=== PATIENT | male | born 1980 | race Caucasian/White ===

== ENCOUNTER 2016-05-09 10:46 | Emergency (ER) | payer OTHER, SELFPAY ==
[~2016-05-09] VITALS: Ht 167.6 cm; Wt 81.2 kg
[2016-05-09] MEDS ORDERED: LISI20TA PO (12:12)
[2016-05-09] MEDS ORDERED: ZANT1TAB PO (12:12)
[2016-05-09 13:34] LABS: BASO % 0.3 % (0.0-1.0); EOS % 0.7 % (0.0-3.0); LARGE UNSTAINED CELL # 0.1 K/mm3 (0.0-0.4); LARGE UNSTAINED CELL % 1.9 % (0.0-4.0); LYMPH # 1.8 K/mm3 (1.5-4.5); LYMPH % 32.1 % (24.0-44.0); MEAN CORPUSCULAR HEMOGLOBIN 31.7 pg (27.0-33.0); MEAN CORPUSCULAR HGB CONC 34.1 g/dl (32.0-36.5); MEAN CORPUSCULAR VOLUME 92.9 fl (80.0-96.0); MONO # 0.3 K/mm3 (0.0-0.8); MONO % 5.3 % (0.0-5.0); NEUTROPHILS # 3.3 K/mm3 (1.8-7.7); NEUTROPHILS % 59.8 % (36.0-66.0); PLATELET COUNT, AUTOMATED 248 k/mm3 (150-450); WHITE BLOOD COUNT 5.4 K/mm3 (4.0-10.0)
--- NOTE | 2016-05-09 13:42 | REP ---
ABDOMINAL SERIES: Supine erect views of the abdomen demonstrate no free air, ileus or obstruction. Metallic arnulfo are seen over the right inguinal region. No abnormal calcifications are seen. The visualized osseous structures appear unremarkable. An accompanying view of the chest demonstrates no evidence of acute infiltrate. Heart is normal in size. IMPRESSION: Negative abdominal series. Signed by Claudio Mendoza MD 05/10/2016 04:37 P
[2016-05-09 13:55] LABS: ALBUMIN 4.6 GM/DL (3.2-5.2); ALBUMIN/GLOBULIN RATIO 1.35 (1.00-1.93); ALKALINE PHOSPHATASE 92 U/L (45-117); ALT/SGPT 30 U/L (12-78); ANION GAP 10 MEQ/L (8-16); AST/SGOT 17 U/L (15-37); BILIRUBIN,DIRECT 0.1 MG/DL (0.0-0.2); BILIRUBIN,TOTAL 0.7 MG/DL (0.2-1.0); BLOOD UREA NITROGEN 15 MG/DL (7-18); CALCIUM LEVEL 9.8 MG/DL (8.5-10.1); CARBON DIOXIDE LEVEL 27 MEQ/L (21-32); CHLORIDE LEVEL 103 MEQ/L (98-107); CREATININE FOR GFR 1.06 MG/DL (0.70-1.30); GLOMERULAR FILTRATION RATE > 60.0 (>60); GLUCOSE, FASTING 91 MG/DL (70-105); POTASSIUM SERUM 3.9 MEQ/L (3.5-5.1); SODIUM LEVEL 140 MEQ/L (136-145)
[2016-05-09] MEDS ORDERED: PROT1TAB2 PO (14:32)
[2016-05-09 14:53] VITALS: BP 102/57
--- NOTE | 2016-05-10 20:03 | ECGEPIP ---
Stationary ECG Study [facility] - ED Test Date: 2016-05-09 Pat Name: JAYSHREE RAZO Department: Room: - Gender: M Director Graphics: rn : 1980 Requested By: David Arias Order Number: [id number] Reading MD: Rhea Khan Measurements Intervals [place] Rate: 64 P: 51 WV: 154 QRS: 51 QRSD: 90 T: 34 QT: 362 QTc: 375 Interpretive Statements SINUS RHYTHM NO PRIOR ECG FOR COMPARISON Electronically Signed On 05-10-2016 20:02:52 EST by Rhea Khan
== END 2016-05-09 15:18 | disposition home or self-care (01) ==
LOC: M ED 12:03
DX: K29.50 Unspecified chronic gastritis without bleeding (principal); I10 Essential (primary) hypertension; F41.9 Anxiety disorder, unspecified; K21.9 Gastro-esophageal reflux disease without esophagitis; F17.200 Nicotine dependence, unspecified, uncomplicated; Z79.899 Other long term (current) drug therapy; Z88.8 Allergy status to other drugs, medicaments and biological substances

== ENCOUNTER 2016-12-23 12:16 | Emergency (ER) | payer MEDICAID, OTHER ==
[~2016-12-23] VITALS: Ht 170.2 cm; Wt 75.0 kg
[~2016-12-23 12:16] MED LIST: LISI20TA PO; PROT1TAB2 PO; ZANT1TAB PO
[2016-12-23] MEDS ORDERED: NAPROXEN 250 MG TAB PO ONE (13:15)
[2016-12-23 13:24] VITALS: BP 122/77
--- NOTE | 2016-12-23 14:48 | REP ---
PA and lateral chest: Comparison is 05/09/2016. The lung matthews are clear. The cardiac size is normal The pancho, mediastinum, and bony thorax are unremarkable. Impression: Negative PA and lateral chest. There is no interval change. Signed by Claudio Sanders MD 12/23/2016 01:05 P
--- NOTE | 2016-12-24 20:57 | ECGEPIP ---
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
== END 2016-12-23 13:26 | disposition home or self-care (01) ==
LOC: M ED 12:16
DX: R07.89 Other chest pain (principal); I10 Essential (primary) hypertension; F41.9 Anxiety disorder, unspecified; Z79.899 Other long term (current) drug therapy; Z88.8 Allergy status to other drugs, medicaments and biological substances; Z82.49 Family history of ischemic heart disease and other diseases of the circulatory system

== ENCOUNTER 2018-08-30 19:23 | Emergency (ER) | payer OTHER ==
[~2018-08-30] VITALS: Ht 170.2 cm; Wt 81.2 kg
[~2018-08-30 19:23] MED LIST changes: +ZANT150T15 PO; -ZANT1TAB PO
[2018-08-30] MEDS ORDERED: diphenhydrAMINE INJ 50MG/ML VIAL (J1200) IV ONE (19:45)
[2018-08-30] MEDS ORDERED: MORPHINE 10 MG/ML 1ML VIAL (J2270) IV ONE (19:45)
[2018-08-30] MEDS ORDERED: PROPOFOL 200 MG/20 ML VIAL As Ordered ONE (20:07)
[2018-08-30] MEDS ORDERED: PROPOFOL 200 MG/20 ML VIAL IV ONE (20:30)
[2018-08-30 20:51] VITALS: BP 142/89
--- NOTE | 2018-08-30 21:29 | REP ---
Clinical: Dislocation. Technique: Portable AP view of the right shoulder. Findings: Findings consistent with the anteroinferior glenohumeral joint dislocation. No obvious acute fracture. Impression: Anteroinferior glenohumeral joint dislocation. Electronically Signed by Beau Wong MD 08/30/2018 09:21 P
--- NOTE | 2018-09-01 07:38 | REP ---
Clinical: Status post reduction. Technique: Portable neutral view of the right shoulder. Findings: Seemingly satisfactory reduction at the glenohumeral joint is appreciated. Subacromial space is normal. Acromioclavicular joint appears normal. No obvious acute fracture identified. Impression: Seemingly satisfactory reduction at the glenohumeral joint. Electronically Signed by Beau Wong MD 09/01/2018 07:29 A
== END 2018-08-30 20:59 | disposition home or self-care (01) ==
LOC: M ED 19:23
DX: M24.411 Recurrent dislocation, right shoulder (principal); I10 Essential (primary) hypertension; Z88.5 Allergy status to narcotic agent; Z79.899 Other long term (current) drug therapy
CPT/HCPCS: 23650; 73020; 96374; 96375; 99152; 99153; 99285; J1200; J2270

== ENCOUNTER 2019-12-31 19:23 | Emergency (ER) | payer OTHER ==
[~2019-12-31] VITALS: Ht 170.2 cm; Wt 88.1 kg
[~2019-12-31 19:23] MED LIST changes: -LISI20TA PO; +LISI20TA35 PO
[2019-12-31] MEDS ORDERED: KETOROLAC 30 MG/ML 1ML VIAL IV ONE (20:30)
[2019-12-31] MEDS ORDERED: NS 1,000 ML IV ONE (20:30)
--- NOTE | 2019-12-31 20:48 | REPVR ---
PROCEDURE INFORMATION: Exam: XR Chest, 2 Views Exam date and time: 12/31/2019 8:24 PM Age: 39 years old Clinical indication: Other: Epigastric pain TECHNIQUE: Imaging protocol: XR of the chest Views: 2 views. COMPARISON: CR Chest, 2 view PA, Lat 12/23/2016 1:00 PM FINDINGS: Lungs: Unremarkable. No consolidation. Pleural space: Unremarkable. No pleural effusion. No pneumothorax. Heart/Mediastinum: Unremarkable. No cardiomegaly. Bones/joints: Unremarkable. IMPRESSION: No acute findings. Electronically signed by: Nando Skinner On 12/31/2019 20:47:48 PM
[2019-12-31 20:56] LABS: BASO % 0.5 % (0.0-1.0); EOS # 0.1 10^3/uL (0.0-0.5); EOS % 1.2 % (0.0-3.0); HEMATOCRIT 47.8 % (42.0-52.0); HEMOGLOBIN 16.2 g/dl (13.5-17.5); LYMPH # 2.2 10^3/uL (1.5-5.0); LYMPH % 39.6 % (24.0-44.0); MEAN CORPUSCULAR HGB CONC 33.9 g/dl (32.0-36.5); MEAN CORPUSCULAR VOLUME 91.6 fl (80.0-96.0); MONO # 0.4 10^3/uL (0.0-0.8); MONO % 6.9 % (0.0-5.0); NEUTROPHILS # 2.9 10^3/uL (1.5-8.5); NEUTROPHILS % 51.6 % (36.0-66.0); PLATELET COUNT, AUTOMATED 290 10^3/uL (150-450); RED BLOOD COUNT 5.22 10^6/uL (4.30-6.10); WHITE BLOOD COUNT 5.7 10^3/uL (4.0-10.0)
[2019-12-31 21:22] LABS: ALBUMIN 4.4 GM/DL (3.2-5.2); ALT/SGPT 64 U/L (12-78); BILIRUBIN,DIRECT < 0.1 MG/DL (0.0-0.2); BILIRUBIN,TOTAL 0.4 MG/DL (0.2-1.0); CK-MB VALUE MASS < 1.0 NG/ML (<3.6); CPK CREATINE PHOSPHOKINASE 141 U/L (39-308); LIPASE 71 U/L (73-393); MB/CK RELATIVE INDEX 0.71 (< OR =4); TROPONIN I < 0.02 NG/ML (< 0.10)
--- NOTE | 2019-12-31 21:34 | REPVR ---
PROCEDURE INFORMATION: Exam: US Abdomen, Limited; Right Upper Quadrant Exam date and time: 12/31/2019 9:08 PM Age: 39 years old Clinical indication: Abdominal pain; Epigastric; Additional info: Epigastric pain TECHNIQUE: Imaging protocol: US abdomen. Real time ultrasound with image documentation. Limited exam focused on the right upper quadrant. COMPARISON: No relevant prior studies available. FINDINGS: Liver: Mildly echogenic, consistent with fatty infiltration. Gallbladder: No gallstones. No gallbladder wall thickening or pericholecystic fluid. Negative sonographic Davis's sign, as per the performing legal coordinator. Common bile duct: No stones. No ductal dilatation. Pancreas: Suboptimally visualized. Right kidney: No mass. No definite stones. No hydronephrosis. IMPRESSION: No acute sonographic findings. Electronically signed by: Misbah Blanc On 12/31/2019 21:33:49 PM
[2019-12-31] MEDS ORDERED: DICY10CA13 PO (22:03)
[2019-12-31 22:08] VITALS: BP 153/81
--- NOTE | 2020-01-01 07:30 | ECGEPIP ---
[facility] - ED Test Date: 2019-12-31 Pat Name: JAYSHREE RAZO Department: Room: - Gender: Male Cost Clerk: tremayne : 1980 Requested By: CASSIUS Arias PA-C Order Number: [id number] Reading MD: Ronnell Alfonso Measurements Intervals [place] Rate: 62 P: 56 MA: 177 QRS: 38 QRSD: 89 T: 18 QT: 348 QTc: 353 Interpretive Statements SINUS RHYTHM Electronically Signed on 01-01-2020 7:29:58 EDT by Ronnell Alfonso
== END 2019-12-31 22:23 | disposition home or self-care (01) ==
LOC: M ED 19:23
DX: R10.9 Unspecified abdominal pain (principal); R19.7 Diarrhea, unspecified; I10 Essential (primary) hypertension; K21.9 Gastro-esophageal reflux disease without esophagitis; Z88.5 Allergy status to narcotic agent
CPT/HCPCS: 71046; 76705; 80047; 80076; 81001; 82550; 82553; 83690; 85025; 93005; 96361; 96374; 99284; J1885

== ENCOUNTER 2020-04-08 14:29 | Emergency (ER) | payer OTHER ==
[~2020-04-08 14:29] MED LIST changes: +DICY10CA13 PO
[2020-04-08] MEDS ORDERED: FAMO1TAB11 PO (14:48)
[2020-04-08] MEDS ORDERED: LISI10TA22 PO (14:48)
[2020-04-08] MEDS ORDERED: HYDR-643 PO (14:48)
[2020-04-08] MEDS ORDERED: GI COCKTAIL 50ML BTL(HYOSCYAMINE/MAALOX/LIDOCAINE VISCOUS)(1:3:1) PO ONE (15:30)
--- NOTE | 2020-04-08 15:46 | REP ---
INDICATION: CHEST PAIN COMPARISON: 12/31/2019. TECHNIQUE: PA/Lateral FINDINGS: Lungs: Clear, no infiltrate. Heart: Normal in size. Mediastinum: Mediastinal silhouette unremarkable. Pleural angles: Unremarkable.. Bones and soft tissues: Unremarkable. IMPRESSION: No acute pulmonary disease. <Electronically signed by Claudio Mendoza > 04/08/20 [id number]
--- OUTSIDE RECORDS SUMMARY | 2020-04-08 15:53 | CCD | Continuity of Care Document ---
Author Author Jay REINA [place] Organization Unknown Address [address] [place] [id number] Phone [phone] Care Team Providers Care Steam Shovel Runner Name Role Phone [facility] [phone] Problems Description No Active Problems Social History Type Date Description Comments Sex Unknown ETOH Use Rarely consumes alcohol Tobacco Use Start: Unknown Patient has never smoked Tobacco Use Start: Unknown The Patient Has Never Vaped Smoking Status Reviewed: 03/11/20 The Patient Has Never Vaped Allergies, Adverse Reactions, Alerts Active Allergies Reaction Severity Comments Date Demerol hives 02/13/2011 Medications Active Medications SIG Qnty Indications Ordering Provide r Date Hoqurteo-Kbfryhpkj-TI 1% Solution instill 4 drops to affected ear three times per day for seven days (both ears) 10ml H60.313 Arthur Huynh JR., M.D. 03/11/2020 Amoxicillin/Clavulanate Potassium 875-125mg Tablets take one tablet by mouth twice a day x 10 days 20tabs J 01.10 Arthur Huynh JR., M.D. 03/11/2020 Omeprazole prn Unknown Hydroxyzine HCL 25mg Tablets one tablet by mouth three times a day as needed for anxiety Un known Tylenol 325mg Capsules Unknown History Medications Amoxicillin 875mg Tablets take one tablet every 12 hrs.x 10 days. 20tabs J01.10 Arthur Huynh JR., M.D. 10/10/2019 - 03/04/2020 Triamcinolone Acetonide 0.1% Cream aaa twice a day for 14 days to legs. avoid cream to the face 45gm S80 .812A Arthur Huynh JR., M.D. 10/10/2019 - 03/04/2020 Immunizations CPT Code Status Date Vaccine Lot # [id number] Given 10/10/2019 Tdap/Tetanus, Di phth Toxoids/Acellular Pertussis Vac 7Yr Or > [id number] Vital Signs Date Vital Result Comment 03/11/2020 10:42am BP Systolic 137 mmHg BP Diastolic 95 mmHg Heart Rate 69 /min Respiratory Rate 16 /min O2 % BldC Oximetry 97 % Body Temperature 98.1 F Weight 180.00 lb Height 67 inches 5'7" BMI (Body Mass Index) 28.2 kg/m2 Pain Level 0 10/10/2019 10:59am BP Systolic 142 mmHg BP Diastolic 94 mmHg Heart Rate 68 /min Respiratory Rate 17 /min O2 % BldC Oximetry 98 % Body Temperature 97.1 F Weight 190.00 lb Height 67 inches 5'7" BMI (Body Mass Index) 29.8 kg/m2 Pain Level 5 Results Description No Information Available Procedures Description No Information Available Medical Devices Description No Information Available Encounters Type Date Location Provider Dx Diagnosis Office Visit 03/11/2020 10:30a Main Office JEANNINE Cobian J01 .10 Acute frontal sinusitis, unspecified H60.313 Diffuse otitis externa, bila teral Z20.828 Contact w and exposure to ot h viral communicable diseases Office Visit 10/10/2019 10:55a Main Office JEANNINE Cobian J01 .10 Acute frontal sinusitis, unspecified S80.812A Abrasion, left lower leg, in itial encounter Assessments Date Code Description Provider 03/11/2020 J01.10 Acute frontal sinusitis, unspeci fied JEANNINE Cobian 03/11/2020 H60.313 Diffuse otitis externa, bilatera l JEANNINE Cobian 03/11/2020 Z20.828 Contact with and (hoyos spected) exposure to other viral communicable diseases JEANNINE Cobian 10/10/2019 J01.10 Acute frontal sinusitis, unspeci fied JEANNINE Cobian 10/10/2019 S80.812A Abrasion, left lower leg, initia l encounter JEANNINE Cobian Plan of Treatment No Information Available Functional Status Description No Information Available Mental Status Description No Information Available Referrals Description No Information Available
--- OUTSIDE RECORDS SUMMARY | 2020-04-08 15:53 | CCD ---
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 [place] Code:[address]-71) Hives Drug Allergy Active ENCOUNTERS from 1980 to 2020-02-27 Encounter Location Date Provider Diagnosis [address] [address] Feb, Kyle Mata Hypertension, unspecified type I10 IMMUNIZATIONS Vaccine Route Administration Date Status Influenza (6mo & up) Fluzone Unknown Apr 13, 2014 Ref used SOCIAL HISTORY Tobacco Use: Social History Observation Description Date Details (start date - stop date) never smoker Sex Assigned At : Social History Observation Description Sex Assigned At Unknown Education: Question Answer Notes Level of Education: Not Finished College Language: Question Answer Notes Languages spoken: Slovak Jehovah'S Witness: Question Answer Notes Jehovah'S Witness 08 Religious Sexual Hx: Question Answer Notes Had sex in the last 12 months (vaginal, oral, or anal)? Yes Have you ever had an STD? No with Women only Use protection? Yes How often? Most of the time Alcohol Screening: Question Answer Notes Did you have a drink containing alcohol in the past year? Ye s Points 5 Interpretation Positive How often did you have six or more drinks on one occas ion in the past year? Less than monthly (1 point) How many drinks did you have on a typica l day when you were drinking in the past year? 3 or 4 (1 point) How often did you have a drink containing alcohol in t he past year? Two to three times per week (3 points) Tobacco Use: Question Answer Notes Are you a: never smoker REASON FOR REFERRAL No Information VITAL SIGNS No information MEDICATIONS Medication SIG (Take, Route, Frequency, Duration) Notes Start Da te End Date Status Lisinopril 10 MG 1 tablet Orally Once a day for 30 day(s) Jan, Active Meclizine HCl 12.5 MG 1 tablet Orally QID prn for 10 days Dec, Not-Taking Famotidine 20 MG 1 tablet at bedtime as needed Orally Onc e a day for 30 day(s) Jan, Active Citalopram Hydrobromide 20 MG 1 tablet Orally Twice a day for 30 day( s) Not-Taking Hydrochlorothiazide 25 MG 1 tablet in the morning Orally Once a day Not-Taking HydrOXYzine HCl 10 MG as directed Orally every 8 hrs for 30 days Active PROCEDURES No Information RESULTS No Results REASON FOR VISIT Lisinopril MEDICAL (GENERAL) HISTORY Type Description Date Medical History Hypertension Medical History GERD Medical History Anxiety Surgical History Hernia 2008 Surgical History Appendix 2000 Goals Section No Information Health Concerns No Information MEDICAL EQUIPMENT No Information MENTAL STATUS No Information FUNCTIONAL STATUS No Information ASSESSMENTS Encounter Date Diagnosis Assessment Notes Treatment Notes Treatm ent Clinical Notes Feb, Hypertension, unspecified type (ICD-10 - I10) PLAN OF TREATMENT Medication Medication Name Sig Start Date Stop Date HydrOXYzine HCl 10 MG as directed Orally every 8 hrs for 30 days Lisinopril 10 MG 1 tablet Orally Once a day for 30 day(s) Jan Famotidine 20 MG 1 tablet at bedtime as needed Orally Onc e a day for 30 day(s) Jan, Insurance Providers Payer Name Payer Address Payer Phone Insured Name Patient Relati onship to Insured Coverage Start Date Coverage End Date [facility] [address] [facility] [phone] JAYSHREE RAZO self
--- OUTSIDE RECORDS SUMMARY | 2020-04-08 15:53 | CCD ---
Author Author [facility] Organization [facility] Address Unknown Phone Unavailable Care Team Providers Care Senior Lead Developer Name Role Phone Kyle Mata Unavailable PROBLEMS Type Condition ICD9-CM Code [id number] Code Onset Dates Condition S tatus SNOMED Code Notes Problem Hypertension, unspecified type I10 Active 3 4759515 Problem Sleep disturbance G47.9 Active 34183863 Problem Gastroesophageal reflux disease without esophagitis K21.9 Active 049113567 Problem Anxiety F41.9 Active 23413554 ALLERGIES Allergen (clinical drug ingredient) Drug/Non Drug Allergy do cumented on EMR Reaction Allergy Type Onset Date Status meperidine Demerol([facility] [place][NOTE 2] Code:[address]-97) Hives Drug Allergy Active ENCOUNTERS from 1980 to 2020-01-25 Encounter Location Date Provider Diagnosis [facility] [place] [address] [place] [address] Jan, Kyle Mata Gastroesophageal reflux dise ase without esophagitis K21.9 ; Anxiety F41.9 ; Hypertension, unspecified type I10 ; Sleep disturbance G47.9 and Preventative health care Z00.00 IMMUNIZATIONS Vaccine Route Administration Date Status Influenza (6mo & up) Fluzone Unknown Apr 13, 2014 Ref used SOCIAL HISTORY Tobacco Use: Social History Observation Description Date Details (start date - stop date) never smoker Sex Assigned At : Social History Observation Description Sex Assigned At Unknown Education: Question Answer Notes Level of Education: Not Finished College Language: Question Answer Notes Languages spoken: Romanian Scientologist: Question Answer Notes Scientologist 08 Roman Catholic Sexual Hx: Question Answer Notes Had sex [...] REASON FOR REFERRAL No Information VITAL SIGNS Weight 191 lbs Jan, Height 68 in Jan, BMI 29.04 kg/m2 Jan, Heart Rate 106 /min Jan, Respiratory Rate 18 /min Jan, Temperature 97.0 degrees Fahrenheit Jan, Oximetry 96 Jan, Blood pressure systolic 110 mm Hg Jan, Blood pressure diastolic 72 mm Hg Jan, MEDICATIONS Medication SIG (Take, Route, Frequency, Duration) Notes Start Da te End Date Status Citalopram Hydrobromide 20 MG 1 tablet Orally Twice a day for 30 day( s) Not-Taking Meclizine HCl 12.5 MG 1 tablet Orally QID prn for 10 days Dec, Not-Taking Famotidine 20 MG 1 tablet at bedtime as needed Orally Onc e a day for 30 day(s) Jan, Active HydrOXYzine HCl 10 MG as directed Orally every 8 hrs for 30 days Active Hydrochlorothiazide 25 MG 1 tablet in the morning Orally Once a day Not-Taking Lisinopril 10 MG 1 tablet Orally Once a day for 30 day(s) Jan, Active PROCEDURES No Information RESULTS No Results REASON FOR VISIT Bp med adjustment MEDICAL (GENERAL) HISTORY Type Description Date Medical History Hypertension Medical History GERD Medical History Anxiety Surgical History Hernia 2008 Surgical History Appendix 2000 Goals Section No Information Health Concerns No Information MEDICAL EQUIPMENT No Information MENTAL STATUS No Information FUNCTIONAL STATUS No Information ASSESSMENTS Encounter Date Diagnosis Assessment Notes Treatment Notes Treatm ent Clinical Notes Jan, Gastroesophageal reflux dise ase without esophagitis (ICD-10 - K21.9) GERD is not controlled well. Patient drinks coffee and eats acidic foods (tomato sauces) in foods. Educated patient on the foods that are acidic and avoiding them if he can to try and get GERD under control. Switched Protonix to Pepcid today. Jan, Anxiety (ICD-10 - F41.9) Refilled hydroxyzine. Instructed pt to be compliant and take as directed. He states that this medication does help with his anxiety when he takes them. FELECIA 7 score of 6- consider SSRI and will mention to patient at next visit Will order a TSH to r/o thyroid disorder as cause of anxiety at next visit Jan, Hypertension, unspecified type (ICD-10 - I10) D/C'd Lisinopril/HCTZ 20/12.5mg today and started lisinopril 10mg PO daily for bp control. Jan, Sleep disturbance (ICD-10 - G47.9) NAYELI home screen with noctural pulse ox referral sent out [facility]- high risk for NAYELI Mallampati score 2 Jan, Preventative health care (ICD-10 - Z00.00) Again addressed and offered the HPV vaccine - pt deferred to next visit Will order lipids profile and A1c at next clinic visit HIV offered and hep C offered- declined PLAN OF TREATMENT Medication Medication Name Sig Start Date Stop Date Lisinopril 10 MG 1 tablet Orally Once a day for 30 day(s) Jan HydrOXYzine HCl 10 MG as directed Orally every 8 hrs for 30 days Famotidine 20 MG 1 tablet at bedtime as needed Orally Onc e a day for 30 day(s) Jan, Treatment Notes Assessment Notes Clinical Notes Gastroesophageal reflux disease without esophagitis GERD is not controlled well. Patient drinks coffee and eats acidic foods (tomato sauces) in foods. Educated patient on the foods that are acidic and avoiding them if he can to try and get GERD under control. Switched Protonix to Pepcid today. Anxiety Refilled hydroxyzine . Instructed pt to be compliant and take as directed. He states that this medication does help with his anxiety when he takes them. FELECIA 7 score of 6- consider SSRI and will mention to patient at next visitWill order a TSH to r/o thyroid disorder as cause of anxiety at next visit Hypertension, unspecified type D/C'd Lis inopril/HCTZ 20/12.5mg today and started lisinopril 10mg PO daily for bp control. Sleep disturbance NAYELI home screen with noctural pulse ox referral sent outSTOP BANG- high risk for OSAMallampati score 2 Preventative health care Again addressed and offered the HPV vaccine - pt deferred to next visitWill order lipids profile and A1c at next clinic visitHIV offered and hep C offered- declined Next Appt Details 6 Months Reason:bp follow up Follow Up:6 Monthsbp follow up Insurance Providers Payer Name Payer Address Payer Phone Insured Name Patient Relati onship to Insured Coverage Start Date Coverage End Date [facility] [address] [facility] [phone] JAYSHREE RAZO self
--- OUTSIDE RECORDS SUMMARY | 2020-04-08 15:53 | CCD ---
Author Author [facility] Organization [facility] Address Unknown Phone Unavailable Care Team Providers Care Documentation Supervisor Name Role Phone KrzysztofVerona Sarina RPA Unavailable Unavailable Krzysztof, M Sarina RPA Unavailable Unavailable Krzysztof, M Sarina RPA Unavailable Unavailable Krzysztof, M Sarina RPA Unavailable Unavailable Krzysztof, M Sarina RPA Unavailable Unavailable Krzysztof, M Sarina RPA Unavailable Unavailable Krzysztof, M Sarina RPA Unavailable Unavailable Krzysztof, M Sarina RPA Unavailable Unavailable Krzysztof, M Sarina RPA Unavailable Unavailable Krzysztof, M Sarina RPA Unavailable Unavailable Krzysztof, M Sarina RPA Unavailable Unavailable Krzysztof, M Sarina RPA Unavailable Unavailable Krzysztof, M Sarina RPA Unavailable Unavailable Krzysztof, M Sarina RPA Unavailable Unavailable Krzysztof, M Sarina RPA Unavailable Unavailable Krzysztof, M Sarina RPA Unavailable Unavailable Krzysztof, M Sarina RPA Unavailable Unavailable Krzysztof, M Sarina RPA Unavailable Unavailable Krzysztof, M Sarina RPA Unavailable Unavailable Krzysztof, M Sarina RPA Unavailable Unavailable Krzysztof, M Sarina RPA Unavailable Unavailable Krzysztof, M Sarina RPA Unavailable Unavailable Krzysztof, M Sarina RPA Unavailable Unavailable Krzysztof, M Sarina RPA Unavailable Unavailable Krzysztof, M Sarina RPA Unavailable Unavailable Krzysztof, M Sarina RPA Unavailable Unavailable Krzysztof, M Sarina RPA Unavailable Unavailable Krzysztof, M Sarina RPA Unavailable Unavailable Krzysztof, M Sarina RPA Unavailable Unavailable Krzysztof, M Sarina RPA Unavailable Unavailable Krzysztof, M Sarina RPA Unavailable Unavailable Krzysztof, M Sarina RPA Unavailable Unavailable Krzysztof, M Sarina RPA Unavailable Unavailable Krzysztof, M Sarina RPA Unavailable Unavailable Krzysztof, M Sarina RPA Unavailable Unavailable Krzysztof, M Sarina RPA Unavailable Unavailable Krzysztof, M Sarina RPA Unavailable Unavailable Krzysztof, M Sarina RPA Unavailable Unavailable Krzysztof, M Sarina RPA Unavailable Unavailable Krzysztof, M Sarina RPA Unavailable Unavailable Krzysztof, M Sarina RPA Unavailable Unavailable Krzysztof, M Sarina RPA Unavailable Unavailable HEBER, AVA PA Unavailable Unavailable HEBER, AVA PA Unavailable Unavailable HEBER, AVA PA Unavailable Unavailable HEBER, AVA PA Unavailable Unavailable HEBER, AVA PA Unavailable Unavailable HEBER, AVA PA Unavailable Unavailable HEBER, AVA PA Unavailable Unavailable HEBER, AVA PA Unavailable Unavailable HEBER, AVA PA Unavailable Unavailable HEBER, AVA PA Unavailable Unavailable HEBER, AVA PA Unavailable Unavailable HEBER, AVA PA Unavailable Unavailable HEBER, AVA PA Unavailable Unavailable HEBER, AVA PA Unavailable Unavailable HEBER, AVA PA Unavailable Unavailable HEBER, AVA PA Unavailable Unavailable HEBER, AVA PA Unavailable Unavailable HEBER, AVA PA Unavailable Unavailable HEBER, AVA PA Unavailable Unavailable HEBER, AVA PA Unavailable Unavailable HEBER, AVA PA Unavailable Unavailable HEBER, AVA PA Unavailable Unavailable HEBER, AVA PA Unavailable Unavailable HEBER, AVA PA Unavailable Unavailable HEBER, AVA PA Unavailable Unavailable HEBER, AVA PA Unavailable Unavailable HEBER, AVA PA Unavailable Unavailable HEBER, AVA PA Unavailable Unavailable HEBER, AVA PA Unavailable Unavailable HEBER, AVA PA Unavailable Unavailable HEBER, AVA PA Unavailable Unavailable HEBER, AVA PA Unavailable Unavailable HEBER, AVA PA Unavailable Unavailable HEBER, AVA PA Unavailable Unavailable HEBER, AVA PA Unavailable Unavailable HEBER, AVA PA Unavailable Unavailable HEBER, AVA PA Unavailable Unavailable HEBER, AVA PA Unavailable Unavailable LETTIERE, A IMAN PA Unavailable Unavailable LETTIERE, A IMAN PA Unavailable Unavailable LETTIERE, A IMAN PA Unavailable Unavailable LETTIERE, A IMAN PA Unavailable Unavailable LETTIERE, A IMAN PA Unavailable Unavailable LETTIERE, A IMAN PA Unavailable Unavailable LETTIERE, A IMAN PA Unavailable Unavailable LETTIERE, A IMAN PA Unavailable Unavailable LETTIERE, A IMAN PA Unavailable Unavailable LETTIERE, A IMAN PA Unavailable Unavailable LETTIERE, A MIAN PA Unavailable Unavailable LETTIERE, A IMAN PA Unavailable Unavailable LETTIERE, A IMAN PA Unavailable Unavailable LETTIERE, A IMAN PA Unavailable Unavailable LETTIERE, A IMAN PA Unavailable Unavailable LETTIERE, A IMAN PA Unavailable Unavailable LETTIERE, A IMAN PA Unavailable Unavailable LETTIERE, A IMAN PA Unavailable Unavailable LETTIERE, A IMAN PA Unavailable Unavailable LETTIERE, A IMAN PA Unavailable Unavailable LETTIERE, A IMAN PA Unavailable Unavailable LETTIERE, A IMAN PA Unavailable Unavailable LETTIERE, A IMAN PA Unavailable Unavailable LETTIERE, A IMAN PA Unavailable Unavailable LETTIERE, A IMAN PA Unavailable Unavailable LETTIERE, A IMAN PA Unavailable Unavailable LETTIERE, A IMAN PA Unavailable Unavailable LETTIERE, A IMAN PA Unavailable Unavailable LETTIERE, A IMAN PA Unavailable Unavailable Re-disclosure Warning The records that you are about to access may contain information from federally-assisted alcohol or drug abuse programs. If such information is present, then the following federally mandated warning applies: This information has been disclosed to you from records protected by federal confidentiality rules (42 CFR part 2). The federal rules prohibit you from making any further disclosure of this information unless further disclosure is expressly permitted by the written consent of the person to whom it pertains or as otherwise permitted by 42 CFR part 2. A general authorization for the release of medical or other information is NOT sufficient for this purpose. The Federal rules restrict any use of the information to criminally investigate or prosecute any alcohol or drug abuse patient.The records that you are about to access may contain highly sensitive health information, the redisclosure of which is protected by Article 27-F of the [facility] Public Health law. If you continue you may have access to information: Regarding HIV / AIDS; Provided by facilities licensed or operated by the [facility] Office of Mental Health; or Provided by the [facility] Office for People With Developmental Disabilities. If such information is present, then the following [place] State mandated warning applies: This information has been disclosed to you from confidential records which are protected by state law. State law prohibits you from making any further disclosure of this information without the specific written consent of the person to whom it pertains, or as otherwise permitted by law. Any unauthorized further disclosure in violation of state law may result in a fine or group home sentence or both. A general authorization for the release of medical or other information is NOT sufficient authorization for further disc losure. Family History Family Member Name Family Member Gender Family Member Status Date o f Status Description Data Source(s) Unknown Unknown Problem MEDENT ([facility]) Unknown Male Problem MEDENT ([facility]) Encounters Encounter Providers Location Date Indications Data Source(s ) Outpatient Attender: IMAN huff 03/11/2020 09:30:00 AM EST MEDENT ([facility]) Unknown [address] [facility] [id number] 02/22/2020 12:00:00 AM EST eCW1 ([facility]) Outpatient [address] [facility] [id number] 01/22/2020 12:00:00 AM EST eCW1 ([facility]) Outpatient Attender: IMAN huff 10/10/2019 10:55:00 AM EDT MEDENT ([facility]) Office Visit, New Pt., Level 3 PC [address] [place] [address] 09/18/2019 12:00:00 AM EDT eCW1 ([facility]) Outpatient Attender: Sarina Blankenship RPA ADULT PC 08/11/2019 07:38:47 PM EDT [facility] Outpatient Attender: IMAN dumonty 05/24/2019 01:35:00 PM EDT MEDENT ([facility]) Outpatient Attender: Sarina Blankenship RPA ADULT PC 04/09/2019 11:46:38 AM EST [facility] Outpatient Attender: AVA Alex ry 03/21/2019 08:50:00 AM EST MEDENT ([facility]) Immunizations Vaccine Date Status Description Data Source(s) Tdap 10/10/2019 11:14:00 AM EDT completed M EDENT ([facility]) Medications Medication Brand Name Start Date Product Form Dose Route Admi nistrative Instructions Pharmacy Instructions Status Indications Reaction Description Data Source(s) 875-125 mg 03/11/2020 12:00:00 AM EST tablet 20 TAKE ONE TABLET BY MOUTH TWICE A DAY FOR 10 DAYS TAKE ONE TABLET BY MOUTH TWICE A DAY FOR 10 DAYS SOLD: 03/11/2020 [facility] Hydrocortisone 10 MG/ML / Neomycin 3.5 M G/ML / Polymyxin B 40582 UNT/ML Otic Solution Azirsfhj-Nbwpyvtvp-RF 03/11/2020 12:00:00 AM EST AURICU LAR active MEDENT ([facility]) Amoxicillin 875 MG / Clavulanate 125 MG Oral Tablet Am oxicillin/Clavulanate Potassium 03/11/2020 12:00:00 AM EST ORAL active MEDENT ([facility]) 3.5-10,000-1 mg/mL-unit/mL-% 03/11/2020 12:00:00 AM EST solu tion 10 INSTILL 4 DROPS TO AFFECTED EAR THREE TIMES A DAY FOR 7 DAYS (BOTH EARS) INSTILL 4 DROPS TO AFFECTED EAR THREE TIMES A DAY FOR 7 DAYS (BOTH EARS) SOLD: 03/11/2020 [facility] 10 mg 02/27/2020 12:00:00 AM EST tablet 30 TAKE ONE TABLET BY MOUTH EVERY DAY TAKE ONE TABLET BY MOUTH EVERY DAY SOLD: 02/29/2020 [facility] 875 mg 02/03/2020 12:00:00 AM EST tablet 20 TAKE ONE TABLET BY MOUTH EVERY 12 HOURS FOR 10 DAYS TAKE ONE TABLET BY MOUTH EVERY 12 HOURS FOR 10 DAYS SO LD: 02/03/2020 [facility] 50 mcg/actuation 01/25/2020 12:00:00 AM EST spray,suspension 16 USE 2 SPRAYS IN EACH NOSTRIL ONCE DAILY USE 2 SPRAYS IN EACH NOSTRIL ONCE DAILY SOLD: 01/25/2020 [facility] 137 mcg (0.1 %) 01/25/2020 12:00:00 AM EST aerosol,spray 30 TAKE 1-2 SPRAYS IN EACH NOSTRIL TWO TIMES A DAY FOR 10 DAYS TAKE 1-2 SPRAYS IN EACH NOSTRIL TWO TIMES A DAY FOR 10 DAYS SOLD: 01/25/2020 [facility] 10 mg 01/23/2020 12:00:00 AM EST tablet 90 TAKE ONE TABLET BY MOUTH EVERY 8 HOURS TAKE ONE TABLET BY MOUTH EVERY 8 HOURS SOLD: 01/24/2020 [facility] 10 mg 01/23/2020 12:00:00 AM EST tablet 30 TAKE ONE TABLET BY MOUTH EVERY DAY TAKE ONE TABLET BY MOUTH EVERY DAY SOLD: 01/24/2020 [facility] 20 mg 01/23/2020 12:00:00 AM EST tablet 30 TAKE ONE TABLET BY MOUTH AT BEDTIME NEEDED TAKE ONE TABLET BY MOUTH AT BEDTIME NEEDED SOLD: [facility] Famotidine 20 MG Oral Tablet FAMOTIDINE 01/23/2020 12:00:00 AM EST tab let 30 TAKE ONE TABLET BY MOUTH AT BEDTIME NEEDED TAKE ONE TABLET BY MOUTH AT BEDTIME NEEDED SOLD: 03/29/2020 [facility] Famotidine 20 MG Oral Tablet Famotidine 20 MG 01/22/2020 12:00:00 A M EST 1.0 {tablet_at_bedtime_as_needed} active Fa motidine 20 MG eCW1 ([facility]) Famotidine 20 MG Oral Tablet Famotidine 20 MG 01/22/2020 12:00:00 A M EST 1.0 {tablet_at_bedtime_as_needed} active Fa motidine 20 MG eCW1 ([facility]) Lisinopril 10 MG Oral Tablet Lisinopril 10 MG 01/22/2020 12:00:00 A M EST 1.0 {tablet} active Lisinopril 10 MG eCW1 ( [facility]) Lisinopril 10 MG Oral Tablet Lisinopril 10 MG 01/22/2020 12:00:00 A M EST 1.0 {tablet} active Lisinopril 10 MG eCW1 ( [facility]) 10 mg 01/01/2020 12:00:00 AM EDT capsule 28 TAKE ONE CAPSULE BY MOUTH EVERY 6 HOURS NEEDED FOR IRRITABLE BOWEL SYMPTOMS TAKE ONE CAPSULE BY MOUTH EVERY 6 HOURS NEEDED FOR IRRITABLE BOWEL SYMPTOMS SOLD: 01/01/2020 [facility] 875-125 mg 11/10/2019 12:00:00 AM EDT tablet 20 TAKE ONE TABLET BY MOUTH TWICE A DAY FOR 10 DAYS TAKE ONE TABLET BY MOUTH TWICE A DAY FOR 10 DAYS SOLD: 11/10/2019 [facility] 10 mg 11/10/2019 12:00:00 AM EDT tablet 30 TAKE ONE TABLET BY MOUTH EVERY DAY TAKE ONE TABLET BY MOUTH EVERY DAY SOLD: 11/10/2019 [facility] Amoxicillin 875 MG Oral Tablet Amoxicillin 10/10/2019 12:00:00 AM EDT completed MEDENT ([facility] Triamcinolone Acetonide 1 MG/ML Topical Cream Triamcinolone Acetonide 10/10/2019 12:00:00 AM EDT completed MEDENT ([facility]) 0.1 % 10/10/2019 12:00:00 AM EDT cream 15 APPLY TO AFFECTED AREA(S) TWO TIMES A DAY FOR 14 DAYS TO LEGS -AVOID CREAM TO THE FACE APPLY TO AFFECTED AREA(S) TWO TIMES A DAY FOR 14 DAYS TO LEGS -AVOID CREAM TO THE FACE SOLD: 10/10/2019 [facility] 875 mg 10/10/2019 12:00:00 AM EDT tablet 20 TAKE ONE TABLET BY MOUTH EVERY 12 HOURS FOR 10 DAYS TAKE ONE TABLET BY MOUTH EVERY 12 HOURS FOR 10 DAYS SO LD: 10/10/2019 [facility] Cephalexin 500 MG Oral Capsule CEPHALEXIN 09/21/2019 12:00:00 AM EDT capsule 30 TAKE ONE CAPSULE BY MOUTH THREE TIMES A DAY FOR 10 DAY S TAKE ONE CAPSULE BY MOUTH THREE TIMES A DAY FOR 10 DAYS SOLD: 09/21/2019 [facility] 20-12.5 mg 07/17/2019 12:00:00 AM EDT tablet 30 TAKE ONE TABLET BY MOUTH EVERY DAY TAKE ONE TABLET BY MOUTH EVERY DAY SOLD: 07/19/2019 [facility] 20-12.5 mg 05/30/2019 12:00:00 AM EDT tablet 30 TAKE ONE TABLET BY MOUTH EVERY DAY TAKE ONE TABLET BY MOUTH EVERY DAY SOLD: 06/02/2019 [facility] 875-125 mg 05/24/2019 12:00:00 AM EDT tablet 20 TAKE ONE TABLET BY MOUTH TWICE A DAY FOR 10 DAYS TAKE ONE TABLET BY MOUTH TWICE A DAY FOR 10 DAYS SOLD: 05/24/2019 [facility] Amoxicillin 875 MG / Clavulanate 125 MG Oral Tablet Am oxicillin/Clavulanate Potassium 05/24/2019 12:00:00 AM EDT ORAL completed MEDENT ([facility]) 4 mg 03/21/2019 12:00:00 AM EST tablets,dose pack 21 DIRECTED DIRECTED SOLD: 03/21/2019 [facility] Methylprednisolone 4 MG Oral Tablet Methylprednisolone 03/04 12:00:00 AM EST ORAL completed MEDENT ([facility]) Insurance Providers Payer name Policy type / Coverage type Policy ID Covered green party ID Covered green party's relationship to hauser Policy Hauser Plan Information [facility] COMMUNITY PLAN [facility] [id number] SP [id number] [facility](MCAID) O [id number] S [id number] Medicaid S [id number] S [id number] Managed Care - [facility] P [id number] S [id number] [facility] Health Maintenance Organization (O) [id number] Self [id number] [facility] AMERICHOICE XIX -HMO [id number] 18 [id number] ANSI-Medicaid [id number] [facility] COMMUNITY PLAN XIX [id number] 18 [id number] [facility] COMMUNTY PLAN [id number] 18 [id number] [facility] Communty Plan Medicaid [id number] Self [id number] [facility] Communty Plan Medicaid [id number] Self 10 [id number] [facility] Communty Plan Medicaid [id number] Self [id number] MEDICAID [id number] SP [id number] HC COMMUNITY PLAN [facility] [id number] SP [id number] [facility] Community Plan Medicaid [id number] Self [id number] [facility] COMMUNITY PLAN [id number] 18 [id number] [facility]([place]) O [id number] S [id number] SELF PAY ONLY [id number] SP [id number] [facility] Health Maintenance Organization (HMO) Self [facility]([place]CAID) O [id number] S [id number] [facility] Health Maintenance Organization (HMO) Self [facility] COMMUNITY PLAN [facility] [id number] SP [id number] Medicaid S UNAVAILABLE S UNAVAILA [facility] [id number] Problems, Conditions, and Diagnoses Code Display Name Description Problem Type Effective Dates Data Source(s) G47.9 19642514 Sleep disturbance Problem 01/22/2020 12:00:0 0 AM EST eCW1 ([facility]) F41.9 [id number] Anxiety Problem 09/18/2019 12:00:00 AM ED T eCW1 ([facility]) K21.9 [id number] Gastroesophageal reflux disease without e sophagitis Problem 09/18/2019 12:00:00 AM EDT eCW1 ([facility]) I10 [id number] Hypertension, unspecified type Problem 09/17 12:00:00 AM EDT eCW1 ([facility]) Results ID Date Data Source [id number] 03/11/2020 12:00:00 AM EST [facility] Name Value Range Interpretation Code Description Data Marfier rce(s) Supporting Document(s) SARS coronavirus 2 Ag Negative [facility] This lab was ordered by [facility] and reported by [facility]. Procedure Social History Code Duration Value Status Description Data Source(s ) Smoking 01/22/2020 12:00:00 AM EST UNK completed eCW1 ([facility]) Smoking 01/22/2020 12:00:00 AM EST UNK completed eCW1 ([facility]) Smoking 09/18/2019 12:00:00 AM EDT UNK completed eCW1 ([facility]) Vital Signs ID Date Data Source UNK Name Value Range Interpretation Code Description Data Source(s) Body mass index (BMI) [Ratio] 28.2 kg/m2 28.2 k g/m2 MEDENT ([facility]) Body height 67 [in_i] 67 [in_i] MEDENT ([facility]) 5'7" Body weight 180.00 [lb_av] 180.00 [lb_av] MEDEN T ([facility]) Body temperature 98.1 [degF] 98.1 [degF] MEDENT ([facility]) Oxygen saturation in Arterial blood by Pulse oximetry 97 % 97 % MEDENT ([facility] Respiratory rate 16 /min 16 /min MEDENT ( [facility] Heart rate 69 /min 69 /min MEDENT ([facility] Diastolic blood pressure 95 mm[Hg] 95 mm[Hg] MEDENT ([facility] Systolic blood pressure 137 mm[Hg] 137 mm[Hg] M EDENT ([facility] Diastolic blood pressure 72 mm[Hg] 72 mm[Hg] eCW1 ([facility]) Systolic blood pressure 110 mm[Hg] 110 mm[Hg] e CW1 ([facility]) Body temperature 97.0 [degF] 97.0 [degF] W1 ( [facility]) Respiratory rate 18 /min 18 /min eCW1 ([facility] Heart rate 106 /min 106 /min eCW1 ([facility]) Body mass index (BMI) [Ratio] 29.04 kg/m2 29.04 kg/m2 W1 ([facility]) Body height 68 [in_i] 68 [in_i] eCW1 ([facility]) Body weight 191 [lb_av] 191 [lb_av] eCW1 ([facility]) Body mass index (BMI) [Ratio] 29.8 kg/m2 29.8 k g/m2 MEDENT ([facility] Body height 67 [in_i] 67 [in_i] MEDENT ([facility] 5'7" Body weight 190.00 [lb_av] 190.00 [lb_av] MEDEN T ([facility] Body temperature 97.1 [degF] 97.1 [degF] MEDENT ([facility] Oxygen saturation in Arterial blood by Pulse oximetry 98 % 98 % MEDENT ([facility] Respiratory rate 17 /min 17 /min MEDENT ( [facility] Heart rate 68 /min 68 /min MEDENT ([facility], [facility] Diastolic blood pressure 94 mm[Hg] 94 mm[Hg] MEDENT ([facility] Systolic blood pressure 142 mm[Hg] 142 mm[Hg] M EDENT ([facility] Diastolic blood pressure 68 mm[Hg] 68 mm[Hg] eCW1 ([facility]) Systolic blood pressure 122 mm[Hg] 122 mm[Hg] e CW1 ([facility]) Body temperature 97.9 [degF] 97.9 [degF] eCW1 ( [facility]) Respiratory rate 18 /min 18 /min eCW1 ([facility]) Heart rate 69 /min 69 /min eCW1 ([facility]) Body mass index (BMI) [Ratio] 29.16 kg/m2 29.16 kg/m2 [facility] ([facility]) Body height 68 [in_i] 68 [in_i] eCW1 ([facility]) Body weight 191.8 [lb_av] 191.8 [lb_av] eCW1 ([facility]) Body mass index (BMI) [Ratio] 27.4 kg/m2 27.4 k g/m2 MEDENT ([facility] Body height 67 [in_i] 67 [in_i] MEDENT ([facility], [facility] 5'7" Body weight 175.00 [lb_av] 175.00 [lb_av] MEDEN T ([facility], [facility]) Body temperature 98.2 [degF] 98.2 [degF] MEDENT ([facility], [facility]) Oxygen saturation in Arterial blood by Pulse oximetry 98 % 98 % MEDENT ([facility], [facility]) Respiratory rate 16 /min 16 /min MEDENT ( [facility], [facility] Heart rate 71 /min 71 /min MEDENT ([facility], [facility] Diastolic blood pressure 90 mm[Hg] 90 mm[Hg] MEDENT ([facility] Systolic blood pressure 128 mm[Hg] 128 mm[Hg] M EDENT ([facility] Systolic blood pressure 128 mm[Hg] 128 mm[Hg] [facility] Body mass index (BMI) [Ratio] 27.9 kg/m2 27.9 k g/m2 [facility] ([facility] Body height 67 [in_i] 67 [in_i] [facility] ([facility]) 5'7" Body weight 178.00 [lb_av] 178.00 [lb_av] MEDEN T ([facility], [facility] Body temperature 98.9 [degF] 98.9 [degF] [facility] ([facility], [facility] Oxygen saturation in Arterial blood by Pulse oximetry 98 % 98 % [facility] ([facility], [facility] Respiratory rate 16 /min 16 /min [facility] ( [facility]) Heart rate 59 /min 59 /min [facility] ([facility], [facility] Diastolic blood pressure 73 mm[Hg] 73 mm[Hg] [facility] ([facility] Patient Treatment Plan of Care Planned Activity Planned Date Details Description Data Source (s) Famotidine 20 MG Oral Tablet 01/22/2020 12:00:00 AM EST eCW1 ([facility]) Lisinopril 10 MG Oral Tablet 01/22/2020 12:00:00 AM EST eCW1 ([facility]) Lisinopril 10 MG Oral Tablet 01/22/2020 12:00:00 AM EST eCW1 ([facility]) Famotidine 20 MG Oral Tablet 01/22/2020 12:00:00 AM EST eCW1 ([facility])
--- OUTSIDE RECORDS SUMMARY | 2020-04-08 15:53 | CCD | Continuity of Care Document ---
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
[2020-04-08 15:56] LABS: BASO % 0.2 % (0.0-1.0); EOS % 0.1 % (0.0-3.0); HEMATOCRIT 45.6 % (42.0-52.0); HEMOGLOBIN 15.7 g/dl (13.5-17.5); LYMPH # 1.4 10^3/uL (1.5-5.0); LYMPH % 16.2 % (24.0-44.0); MEAN CORPUSCULAR HEMOGLOBIN 32.2 pg (27.0-33.0); MEAN CORPUSCULAR HGB CONC 34.4 g/dl (32.0-36.5); MEAN CORPUSCULAR VOLUME 93.4 fl (80.0-96.0); MONO # 0.5 10^3/uL (0.0-0.8); MONO % 5.3 % (0.0-5.0); NEUTROPHILS # 6.9 10^3/uL (1.5-8.5); NEUTROPHILS % 77.9 % (36.0-66.0); PLATELET COUNT, AUTOMATED 275 10^3/uL (150-450); RED BLOOD COUNT 4.88 10^6/uL (4.30-6.10); WHITE BLOOD COUNT 8.8 10^3/uL (4.0-10.0)
[2020-04-08 16:13] LABS: INR 0.92; PROTHROMBIN TIME 12.5 SECONDS (12.5-14.3)
[2020-04-08 16:14] LABS: PARTIAL THROMBOPLASTIN TIME 26.7 SECONDS (24.2-38.5)
[2020-04-08 16:34] LABS: ALBUMIN 4.4 GM/DL (3.2-5.2); ALT/SGPT 44 U/L (12-78); BILIRUBIN,DIRECT < 0.1 MG/DL (0.0-0.2); BILIRUBIN,TOTAL 0.6 MG/DL (0.2-1.0); BLOOD UREA NITROGEN 13 MG/DL (7-18); CALCIUM LEVEL 9.5 MG/DL (8.5-10.1); CARBON DIOXIDE LEVEL 26 MEQ/L (21-32); CHLORIDE LEVEL 107 MEQ/L (98-107); CK-MB VALUE MASS < 1.0 NG/ML (<3.6); CPK CREATINE PHOSPHOKINASE 110 U/L (39-308); CREATININE FOR GFR 0.94 MG/DL (0.70-1.30); FREE T4 1.04 NG/DL (0.76-1.46); GLOMERULAR FILTRATION RATE > 60.0 (>60); GLUCOSE, FASTING 99 MG/DL (70-100); LIPASE 164 U/L (73-393); MB/CK RELATIVE INDEX 0.91 (< OR =4); NT-PRO BNP 24 PG/ML (<125); SODIUM LEVEL 140 MEQ/L (136-145); TOTAL PROTEIN 7.5 GM/DL (6.4-8.2); TROPONIN I < 0.02 NG/ML (< 0.10)
[2020-04-08 18:01] VITALS: BP 137/80
--- NOTE | 2020-04-08 20:28 | ECGEPIP ---
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
== END 2020-04-08 18:12 | disposition home or self-care (01) ==
LOC: M ED 14:29 → EDBD 14:29 → M ED 18:12
DX: F41.9 Anxiety disorder, unspecified (principal); I10 Essential (primary) hypertension; K21.9 Gastro-esophageal reflux disease without esophagitis; Z79.899 Other long term (current) drug therapy; Z88.8 Allergy status to other drugs, medicaments and biological substances

== ENCOUNTER 2020-05-28 11:44 | Emergency (ER) | payer OTHER ==
[~2020-05-28] VITALS: Ht 172.7 cm; Wt 84.5 kg
[~2020-05-28 11:44] MED LIST changes: +FAMO1TAB11 PO; +HYDR-643 PO; +LISI10TA22 PO
[2020-05-28] MEDS ORDERED: ACETAMINOPHEN 500 MG TAB PO ONE (12:10)
[2020-05-28] MEDS ORDERED: PANTOPRAZOLE 40MG VIAL (C9113 PER 1) IV ONE (12:10)
[2020-05-28 12:39] LABS: BASO % 0.3 % (0.0-1.0); EOS # 0.1 10^3/uL (0.0-0.5); EOS % 1.5 % (0.0-3.0); HEMATOCRIT 43.5 % (42.0-52.0); HEMOGLOBIN 15.2 g/dl (13.5-17.5); LYMPH # 1.8 10^3/uL (1.5-5.0); LYMPH % 46.2 % (24.0-44.0); MEAN CORPUSCULAR HEMOGLOBIN 33.1 pg (27.0-33.0); MEAN CORPUSCULAR HGB CONC 34.9 g/dl (32.0-36.5); MEAN CORPUSCULAR VOLUME 94.8 fl (80.0-96.0); MONO # 0.4 10^3/uL (0.0-0.8); MONO % 10.4 % (2.0-8.0); NEUTROPHILS # 1.6 10^3/uL (1.5-8.5); NEUTROPHILS % 41.3 % (36.0-66.0); PLATELET COUNT, AUTOMATED 250 10^3/uL (150-450); RED BLOOD COUNT 4.59 10^6/uL (4.30-6.10)
--- NOTE | 2020-05-28 12:53 | REP ---
INDICATION: Abdominal Pain. COMPARISON: Comparison chest radiograph April 08, 2020.. TECHNIQUE: Three views including upright chest radiograph. FINDINGS: Upright chest radiograph is unremarkable. There is no evidence of infiltrate or free subdiaphragmatic air. Heart size is normal. Pulmonary vasculature is not increased. Pleural angles are sharp. Supine and erect views of the abdomen demonstrate a normal bowel gas pattern. The psoas margins and the flank stripes are intact. There is no evidence of mass, organomegaly, or pathologic calcification. There are surgical arnulfo in the right inguinal soft tissues suggestive of previous right inguinal herniorrhaphy. Mild stops 2 arthritic spurring is seen at the hips bilaterally. Air-filled appendix is felt to be visualized in the right lower abdomen. IMPRESSION: Negative acute abdominal series. <Electronically signed by Irwin Sam > 05/28/20 [id number]
[2020-05-28 13:06] LABS: ALBUMIN 4.1 GM/DL (3.2-5.2); ALT/SGPT 43 U/L (12-78); AMYLASE 71 U/L (25-115); BILIRUBIN,DIRECT 0.2 MG/DL (0.0-0.2); BILIRUBIN,TOTAL 0.5 MG/DL (0.2-1.0); CK-MB VALUE MASS < 1.0 NG/ML (<3.6); CPK CREATINE PHOSPHOKINASE 110 U/L (39-308); LIPASE 81 U/L (73-393); MB/CK RELATIVE INDEX 0.91 (< OR =4); TOTAL PROTEIN 7.2 GM/DL (6.4-8.2); TROPONIN I < 0.02 NG/ML (< 0.10)
[2020-05-28] MEDS ORDERED: ISOVUE-370 76% 100ML VIAL As Ordered ONE (13:47)
--- NOTE | 2020-05-28 14:44 | REP ---
INDICATION: LLQ ttp. COMPARISON: Comparison CT study March 04, 2012.. TECHNIQUE: Helical scanning is acquired and 3 mm axial images re-formatted. Coronal and sagittal MPR images are generated. The CT contrast enhancement dose is 100 mL of intravenous Isovue 370. FINDINGS: Digital preliminary inverform machine operator radiograph shows a normal bowel gas pattern. Axial CT images demonstrate that the lung bases are clear. There is no evidence of pleural effusion or upper abdominal ascites. The liver is normal in size homogeneous in texture. There are 2 tiny subcentimeter cysts in the right lobe. The spleen is normal in size homogeneous in texture. Normal adrenal glands are seen. No abnormality is noted in the pancreas or the gallbladder. The kidneys enhance symmetrically and are morphologically intact. No retroperitoneal mass or adenopathy is seen. Normal caliber aorta. No evidence of free air or abnormal fluid collection. Small and large bowel loops are normal in caliber. No obstructive lesion is seen. Patient is status post appendectomy and right inguinal herniorrhaphy. There are some dystrophic prostate calcifications. Urinary bladder and seminal vesicles are unremarkable. There is mild mural thickening in the left colon question enterocolitis pattern. No small bowel disease is appreciated. No abdominal wall defect or bony destructive lesion. IMPRESSION: Mild left colonic mural thickening question enterocolitis. Status post appendectomy and right inguinal herniorrhaphy. Otherwise negative CT abdomen and pelvis. <Electronically signed by Irwin Sam > 05/28/20 [id number]
[2020-05-28 15:22] VITALS: BP 135/92
--- NOTE | 2020-05-29 07:35 | ECGEPIP ---
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
== END 2020-05-28 15:29 | disposition home or self-care (01) ==
LOC: M ED 11:44
DX: K52.9 Noninfective gastroenteritis and colitis, unspecified (principal); I10 Essential (primary) hypertension; K21.9 Gastro-esophageal reflux disease without esophagitis; F41.9 Anxiety disorder, unspecified; Z88.5 Allergy status to narcotic agent; Z79.899 Other long term (current) drug therapy
CPT/HCPCS: 36415; 74021; 74177; 80047; 80076; 81001; 82150; 82550; 82553; 83690; 85025; 93005; 96374; 99284; C9113; Q9967

== ENCOUNTER → 2021-03-13 | Outpatient (REF) | payer OTHER ==
[2021-03-13 21:27] LABS: APPEARANCE, URINE CLEAR (CLEAR); BACTERIA, URINE AUTO NEGATIVE (NEGATIVE); BILIRUBIN, URINE AUTO NEGATIVE (NEGATIVE); BLOOD, URINE BLOOD 1+ (NEGATIVE); COLOR, URINE YELLOW (YELLOW); GLUCOSE, URINE (UA) AUTO NEGATIVE (NEGATIVE); KETONE, URINE AUTO NEGATIVE (NEGATIVE); LEUKOCYTE ESTERASE, URINE AUTO NEGATIVE (NEGATIVE); MUCUS, URINE SMALL (NEGATIVE); NITRITE, URINE AUTO NEGATIVE (NEGATIVE); PROTEIN, URINE AUTO NEGATIVE (NEGATIVE); RBC, URINE AUTO 1 /HPF (0-3); SPECIFIC GRAVITY URINE AUTO 1.021 (1.002-1.035); SQUAMOUS EPITHELIAL CELL UR AU 0 /HPF (0-6); UROBILINOGEN, URINE AUTO 0.2 mg/dL (0.0-2.0); WBC, URINE AUTO 0 /HPF (0-3)
== END ==
LOC: M LAB REF 21:13
PROVIDERS: ATTEND Physician Assistant Medical
DX: N39.0 Urinary tract infection, site not specified (principal)

== ENCOUNTER 2021-04-16 10:00 | Emergency (ER) | payer OTHER ==
[~2021-04-16] VITALS: Ht 170.2 cm; Wt 85.3 kg
[2021-04-16] MEDS ORDERED: FAMO40TA3 (10:11)
[2021-04-16] MEDS ORDERED: HYDR-643 (10:11)
[2021-04-16] MEDS ORDERED: DIPH25CA32 PO (10:11)
[2021-04-16] MEDS ORDERED: hydrOXYzine 10 MG TAB PO STA (13:06)
[2021-04-16] MEDS ORDERED: ASPIRIN 81 MG CHEW TABLET PO ONE (13:10)
[2021-04-16] MEDS ORDERED: PANTOPRAZOLE 40MG VIAL (C9113 PER 1) IV ONE (13:10)
[2021-04-16 13:36] LABS: BASO % 0.4 % (0.0-1.0); EOS % 0.7 % (0.0-3.0); HEMATOCRIT 45.6 % (42.0-52.0); HEMOGLOBIN 15.6 g/dl (13.5-17.5); LYMPH # 1.8 10^3/uL (1.5-5.0); LYMPH % 32.8 % (24.0-44.0); MEAN CORPUSCULAR HEMOGLOBIN 31.9 pg (27.0-33.0); MEAN CORPUSCULAR HGB CONC 34.2 g/dl (32.0-36.5); MEAN CORPUSCULAR VOLUME 93.3 fl (80.0-96.0); MONO # 0.3 10^3/uL (0.0-0.8); MONO % 5.7 % (2.0-8.0); NEUTROPHILS # 3.3 10^3/uL (1.5-8.5); NEUTROPHILS % 60.2 % (36.0-66.0); PLATELET COUNT, AUTOMATED 243 10^3/uL (150-450); RED BLOOD COUNT 4.89 10^6/uL (4.30-6.10); WHITE BLOOD COUNT 5.4 10^3/uL (4.0-10.0)
[2021-04-16 13:56] LABS: BLOOD UREA NITROGEN 11 MG/DL (7-18); CALCIUM LEVEL 9.4 MG/DL (8.5-10.1); CARBON DIOXIDE LEVEL 30 MEQ/L (21-32); CHLORIDE LEVEL 106 MEQ/L (98-107); CREATININE FOR GFR 1.05 MG/DL (0.70-1.30); GLOMERULAR FILTRATION RATE > 60.0 (>60); GLUCOSE, FASTING 91 MG/DL (70-100); POTASSIUM SERUM 4.4 MEQ/L (3.5-5.1); SODIUM LEVEL 142 MEQ/L (136-145)
[2021-04-16 14:00] LABS: ALBUMIN 4.2 GM/DL (3.2-5.2); BILIRUBIN,DIRECT 0.2 MG/DL (0.0-0.2); BILIRUBIN,TOTAL 0.4 MG/DL (0.2-1.0); CK-MB VALUE MASS < 1.0 NG/ML (<3.6); CPK CREATINE PHOSPHOKINASE 79 U/L (39-308); MB/CK RELATIVE INDEX 1.27 (< OR =4); TOTAL PROTEIN 7.2 GM/DL (6.4-8.2)
[2021-04-16] MEDS ORDERED: OMEP-173 PO (14:48)
[2021-04-16 15:24] VITALS: BP 136/88
[2021-04-17] MEDS ORDERED: propofoL 200 MG/20 ML VIAL As Ordered ONE (11:34)
== END 2021-04-16 15:25 | disposition home or self-care (01) ==
LOC: M ED 10:00
DX: K21.9 Gastro-esophageal reflux disease without esophagitis (principal); F41.9 Anxiety disorder, unspecified; R07.89 Other chest pain; R20.0 Anesthesia of skin; I10 Essential (primary) hypertension; Z88.8 Allergy status to other drugs, medicaments and biological substances; Z79.899 Other long term (current) drug therapy
CPT/HCPCS: 71045; 80048; 82248; 82550; 82553; 83690; 85025; 93005; 94760; 96374; 99284; C9113

== ENCOUNTER 2021-08-24 11:45 | Emergency (ER) | payer OTHER ==
[~2021-08-24] VITALS: Ht 172.7 cm; Wt 77.3 kg
[~2021-08-24 11:45] MED LIST changes: -FLOM0.4C39 PO; -KETO10TAB PO
[2021-08-24] MEDS ORDERED: ACETAMINOPHEN 325 MG TAB PO ONE (12:00)
[2021-08-24 12:40] LABS: BASO % 0.2 % (0.0-1.0); EOS % 0.3 % (0.0-3.0); HEMATOCRIT 42.4 % (42.0-52.0); HEMOGLOBIN 14.4 g/dl (13.5-17.5); LYMPH # 1.1 10^3/uL (1.5-5.0); LYMPH % 18.6 % (24.0-44.0); MEAN CORPUSCULAR HEMOGLOBIN 32.1 pg (27.0-33.0); MEAN CORPUSCULAR VOLUME 94.4 fl (80.0-96.0); MONO # 0.3 10^3/uL (0.0-0.8); MONO % 5.8 % (2.0-8.0); NEUTROPHILS # 4.4 10^3/uL (1.5-8.5); NEUTROPHILS % 74.9 % (36.0-66.0); PLATELET COUNT, AUTOMATED 236 10^3/uL (150-450); RED BLOOD COUNT 4.49 10^6/uL (4.30-6.10); WHITE BLOOD COUNT 5.9 10^3/uL (4.0-10.0)
[2021-08-24] MEDS ORDERED: TAMSULOSIN 0.4 MG CAP PO ONE (12:55)
[2021-08-24 13:09] LABS: ALBUMIN 3.7 GM/DL (3.2-5.2); ALT/SGPT 36 U/L (12-78); BILIRUBIN,TOTAL 0.4 MG/DL (0.2-1.0); BLOOD UREA NITROGEN 9 MG/DL (7-18); CALCIUM LEVEL 8.8 MG/DL (8.5-10.1); CARBON DIOXIDE LEVEL 25 MEQ/L (21-32); CHLORIDE LEVEL 111 MEQ/L (98-107); GLOMERULAR FILTRATION RATE > 60.0 (>60); GLUCOSE, FASTING 111 MG/DL (70-100); POTASSIUM SERUM 3.7 MEQ/L (3.5-5.1); SODIUM LEVEL 142 MEQ/L (136-145); TOTAL PROTEIN 6.1 GM/DL (6.4-8.2)
[2021-08-24] MEDS ORDERED: MORPHINE 4 MG/ML 1ML VIAL/SYRINGE IV ONE (13:15)
[2021-08-24] MEDS ORDERED: KETOROLAC 30 MG/ML 1ML VIAL IV ONE (14:05)
[2021-08-24] MEDS ORDERED: FLOM0.4C39 PO (15:08)
[2021-08-24] MEDS ORDERED: KETO10TAB PO (15:09)
[2021-08-24 15:20] VITALS: BP 130/80
== END 2021-08-24 15:26 | disposition home or self-care (01) ==
LOC: M ED 11:45 → EDBD 11:45 → M ED 15:26
DX: N20.0 Calculus of kidney (principal); I10 Essential (primary) hypertension; K21.9 Gastro-esophageal reflux disease without esophagitis; Z88.8 Allergy status to other drugs, medicaments and biological substances; Z79.899 Other long term (current) drug therapy
CPT/HCPCS: 74176; 80053; 81001; 85025; 87086; 96374; 96375; 99284; J1885; J2270

== ENCOUNTER → 2021-08-24 | Outpatient (REF) | payer OTHER ==
[~2021-08-24] MED LIST changes: +DIPH25CA32 PO; +FAMO40TA3; +FLOM0.4C39 PO; +HYDR-643; +KETO10TAB PO; +OMEP-173 PO
[2021-08-24 12:34] LABS: APPEARANCE, URINE HAZY (CLEAR); BACTERIA, URINE AUTO NEGATIVE (NEGATIVE); BILIRUBIN, URINE AUTO NEGATIVE (NEGATIVE); BLOOD, URINE BLOOD 3+ (NEGATIVE); COLOR, URINE YELLOW (YELLOW); GLUCOSE, URINE (UA) AUTO NEGATIVE (NEGATIVE); KETONE, URINE AUTO NEGATIVE (NEGATIVE); LEUKOCYTE ESTERASE, URINE AUTO NEGATIVE (NEGATIVE); MUCUS, URINE SMALL (NEGATIVE); NITRITE, URINE AUTO NEGATIVE (NEGATIVE); PROTEIN, URINE AUTO 1+ mg/dL (NEGATIVE); RBC, URINE AUTO TNTC /HPF (0-3); SPECIFIC GRAVITY URINE AUTO 1.021 (1.002-1.035); SQUAMOUS EPITHELIAL CELL UR AU 1 /HPF (0-6); UROBILINOGEN, URINE AUTO 0.2 mg/dL (0.0-2.0); WBC, URINE AUTO 0 /HPF (0-3)
== END ==
LOC: M LAB REF 11:21
PROVIDERS: ATTEND Physician Assistant Medical
DX: N39.0 Urinary tract infection, site not specified (principal)

== ENCOUNTER → 2021-09-25 | Outpatient (REF) | payer OTHER ==
[~2021-09-25] MED LIST changes: +FLOM0.4C39 PO; +KETO10TAB PO
[2021-09-25 17:16] LABS: APPEARANCE, URINE CLEAR (CLEAR); BACTERIA, URINE AUTO NEGATIVE (NEGATIVE); BILIRUBIN, URINE AUTO NEGATIVE (NEGATIVE); BLOOD, URINE BLOOD NEGATIVE (NEGATIVE); COLOR, URINE YELLOW (YELLOW); GLUCOSE, URINE (UA) AUTO NEGATIVE (NEGATIVE); KETONE, URINE AUTO NEGATIVE (NEGATIVE); LEUKOCYTE ESTERASE, URINE AUTO NEGATIVE (NEGATIVE); MUCUS, URINE SMALL (NEGATIVE); NITRITE, URINE AUTO NEGATIVE (NEGATIVE); PROTEIN, URINE AUTO NEGATIVE (NEGATIVE); RBC, URINE AUTO 1 /HPF (0-3); SPECIFIC GRAVITY URINE AUTO 1.018 (1.002-1.035); SQUAMOUS EPITHELIAL CELL UR AU 0 /HPF (0-6); UROBILINOGEN, URINE AUTO 0.2 mg/dL (0.0-2.0); WBC, URINE AUTO 1 /HPF (0-3)
== END ==
LOC: M LAB REF 16:36
PROVIDERS: ATTEND Physician Assistant Medical
DX: N39.0 Urinary tract infection, site not specified (principal)

== ENCOUNTER → 2021-10-02 | Outpatient (REF) | payer OTHER ==
[2021-10-02 22:01] LABS: APPEARANCE, URINE CLEAR (CLEAR); BACTERIA, URINE AUTO NEGATIVE (NEGATIVE); BILIRUBIN, URINE AUTO NEGATIVE (NEGATIVE); BLOOD, URINE BLOOD NEGATIVE (NEGATIVE); COLOR, URINE YELLOW (YELLOW); GLUCOSE, URINE (UA) AUTO NEGATIVE (NEGATIVE); KETONE, URINE AUTO TRACE mg/dL (NEGATIVE); LEUKOCYTE ESTERASE, URINE AUTO NEGATIVE (NEGATIVE); MUCUS, URINE SMALL (NEGATIVE); NITRITE, URINE AUTO NEGATIVE (NEGATIVE); PROTEIN, URINE AUTO NEGATIVE (NEGATIVE); RBC, URINE AUTO 2 /HPF (0-3); SPECIFIC GRAVITY URINE AUTO 1.023 (1.002-1.035); SQUAMOUS EPITHELIAL CELL UR AU 0 /HPF (0-6); WBC, URINE AUTO 1 /HPF (0-3)
== END ==
LOC: M LAB REF 21:19
PROVIDERS: ATTEND Physician Assistant
DX: N39.0 Urinary tract infection, site not specified (principal)

== ENCOUNTER → 2021-11-14 | Outpatient (REF) | payer OTHER ==
[2021-11-14 22:50] LABS: APPEARANCE, URINE MANUAL CLEAR (CLEAR); COLOR, URINE MANUAL LT YELLOW (YELLOW)
[2021-11-14 22:52] LABS: BILIRUBIN, URINE MANUAL NEGATIVE (NEGATIVE); BLOOD URINE MANUAL TRACE (NEGATIVE); GLUCOSE, URINE (UA) MANUAL NEGATIVE (NEGATIVE); KETONE, URINE MANUAL NEGATIVE (NEGATIVE); LEUKOCYTE ESTERASE, URINE MAN NEGATIVE (NEGATIVE); NITRITE, URINE MANUAL NEGATIVE (NEGATIVE); PH,URINE MAN 5.5 UNITS (5.0 - 7.0); PROTEIN, URINE MANUAL NEGATIVE (NEGATIVE); UROBILINOGEN, URINE MANUAL NORMAL (NORMAL)
[2021-11-14 23:17] LABS: BACTERIA, URINE SMALL AMOUNT; HYALINE CAST, URINE NONE SEEN /lpf (0-1); MUCUS, URINE SMALL AMOUNT (NEGATIVE); RBC, URINE 0-1 /hpf (0-3); SQUAMOUS EPITHELIAL CELL URINE SMALL AMOUNT /hpf (SMALL AMT); WBC, URINE 0-1 /hpf (0-3)
== END ==
LOC: M LAB REF 21:23
PROVIDERS: ATTEND Physician Assistant Medical
DX: N39.0 Urinary tract infection, site not specified (principal)

== ENCOUNTER 2021-12-24 01:46 | Emergency (ER) | payer OTHER ==
[~2021-12-24] VITALS: Ht 170.2 cm; Wt 79.5 kg
[2021-12-24 01:47] VITALS: BP 129/76
== END 2021-12-24 02:26 | disposition left against medical advice (07) ==
LOC: M ED 01:46
DX: Z53.21 Procedure and treatment not carried out due to patient leaving prior to being seen by health care provider (principal)

== ENCOUNTER 2022-01-29 16:41 | Emergency (ER) | payer OTHER ==
[~2022-01-29] VITALS: Ht 172.7 cm; Wt 81.8 kg
[2022-01-29] MEDS ORDERED: METR-265 (17:35)
[2022-01-29] MEDS ORDERED: ONDA4TAB6 (17:35)
[2022-01-29 17:59] LABS: BASO % 0.2 % (0.0-1.0); HEMATOCRIT 45.9 % (42.0-52.0); HEMOGLOBIN 15.9 g/dl (13.5-17.5); LYMPH # 0.9 10^3/uL (1.5-5.0); LYMPH % 7.3 % (24.0-44.0); MEAN CORPUSCULAR HEMOGLOBIN 32.6 pg (27.0-33.0); MEAN CORPUSCULAR HGB CONC 34.6 g/dl (32.0-36.5); MEAN CORPUSCULAR VOLUME 94.3 fl (80.0-96.0); MONO # 0.3 10^3/uL (0.0-0.8); MONO % 2.5 % (2.0-8.0); NEUTROPHILS # 10.9 10^3/uL (1.5-8.5); NEUTROPHILS % 89.6 % (36.0-66.0); PLATELET COUNT, AUTOMATED 291 10^3/uL (150-450); RED BLOOD COUNT 4.87 10^6/uL (4.30-6.10); WHITE BLOOD COUNT 12.2 10^3/uL (4.0-10.0)
[2022-01-29 18:21] LABS: CHLORIDE LEVEL 102 MMOL/L (98-107); SODIUM LEVEL 140 MMOL/L (136-145)
[2022-01-29 18:22] LABS: ALBUMIN 4.3 G/DL (3.2-5.2); CARBON DIOXIDE LEVEL 27 MMOL/L (20-31)
[2022-01-29 18:28] LABS: BLOOD UREA NITROGEN 12 MG/DL (9-23); CALCIUM LEVEL 9.7 MG/DL (8.5-10.1); GLUCOSE, FASTING 112 MG/DL (60-100)
[2022-01-29 18:29] LABS: ALT/SGPT 49 U/L (7.0-40); BILIRUBIN,TOTAL 0.6 MG/DL (0.3-1.2); LIPASE 27 U/L (12-53); TOTAL PROTEIN 7.3 G/DL (5.7-8.2)
[2022-01-29 18:30] LABS: BILIRUBIN,DIRECT 0.2 MG/DL (<0.4); CREATININE FOR GFR 0.88 MG/DL (0.70-1.30); GLOMERULAR FILTRATION RATE > 60.0 (>60)
[2022-01-29 18:32] LABS: POTASSIUM SERUM 4.8 MMOL/L (3.5-5.1)
[2022-01-29] MEDS ORDERED: ONDANSETRON 4MG 2ML VIAL IV ONE (21:40)
[2022-01-29] MEDS ORDERED: KETOROLAC 30 MG/ML 1ML VIAL IV ONE (21:50)
[2022-01-29] MEDS ORDERED: NS 1,000 ML IV ONE (21:50)
[2022-01-29] MEDS ORDERED: DICYCLOMINE 10 MG CAP PO ONE (22:30)
[2022-01-29] MEDS ORDERED: ISOVUE-370 76% 100ML VIAL As Ordered ONE (22:42)
[2022-01-30] MEDS ORDERED: methylPREDNISolone 125MG 2ML VIAL IV ONE (00:30)
[2022-01-30] MEDS ORDERED: METOCLOPRAMIDE 10MG TAB PO ONE (00:30)
[2022-01-30] MEDS ORDERED: ACETAMINOPHEN 500 MG TAB PO ONE (00:30)
[2022-01-30] MEDS ORDERED: predniSONE 20 MG TAB PO ONE (00:35)
[2022-01-30 00:40] VITALS: BP 131/82
== END 2022-01-30 00:42 | disposition home or self-care (01) ==
LOC: M ED 21:11
DX: R10.9 Unspecified abdominal pain (principal); R51.9 Headache, unspecified; R11.2 Nausea with vomiting, unspecified; J02.9 Acute pharyngitis, unspecified; K57.90 Diverticulosis of intestine, part unspecified, without perforation or abscess without bleeding; I10 Essential (primary) hypertension; K21.9 Gastro-esophageal reflux disease without esophagitis; Z88.8 Allergy status to other drugs, medicaments and biological substances; Z79.899 Other long term (current) drug therapy; Z79.2 Long term (current) use of antibiotics
CPT/HCPCS: 74177; 80048; 80076; 83690; 85025; 87400; 96361; 96374; 96375; 99284; J1885; J2405; J7512

== ENCOUNTER → 2022-03-07 | Outpatient (REF) | payer OTHER ==
[~2022-03-07] MED LIST changes: +DIPH-435 PO; -DIPH25CA32 PO; +METR-265; +ONDA4TAB6
== END ==
LOC: M WUC 09:02
PROVIDERS: ATTEND Physician Assistant
DX: R10.30 Lower abdominal pain, unspecified (principal)

== ENCOUNTER → 2022-10-16 | Outpatient (REF) | payer OTHER ==
[~2022-10-16] MED LIST changes: +DICY-61 PO; -DICY10CA13 PO
[2022-10-16 21:47] LABS: APPEARANCE, URINE CLEAR (CLEAR); BACTERIA, URINE AUTO NEGATIVE (NEGATIVE); BILIRUBIN, URINE AUTO NEGATIVE (NEGATIVE); BLOOD, URINE BLOOD 1+ (NEGATIVE); COLOR, URINE YELLOW (YELLOW); GLUCOSE, URINE (UA) AUTO NEGATIVE (NEGATIVE); KETONE, URINE AUTO NEGATIVE (NEGATIVE); LEUKOCYTE ESTERASE, URINE AUTO NEGATIVE (NEGATIVE); MUCUS, URINE SMALL (NEGATIVE); NITRITE, URINE AUTO NEGATIVE (NEGATIVE); PROTEIN, URINE AUTO NEGATIVE (NEGATIVE); RBC, URINE AUTO 3 /HPF (0-3); SPECIFIC GRAVITY URINE AUTO 1.028 (1.002-1.035); SQUAMOUS EPITHELIAL CELL UR AU 0 /HPF (0-6); UROBILINOGEN, URINE AUTO 0.2 mg/dL (0.0-2.0); WBC, URINE AUTO 1 /HPF (0-3)
== END ==
LOC: M LAB REF 21:12
PROVIDERS: ATTEND Physician Assistant
DX: N39.0 Urinary tract infection, site not specified (principal)

== ENCOUNTER → 2022-12-26 | Day surgery (SDC) | payer OTHER ==
[~2022-12-26] VITALS: Ht 170.2 cm; Wt 81.2 kg
[~2022-12-26] MED LIST changes: +LIDOCAINE 2% 100MG/5ML SDV (FOR ANES.) As Ordered ONE; +NS 1,000 ML IV ONE; +fentaNYL 100 MCG/2 ML INJECTION As Ordered ONE; +propofoL 500 MG/50 ML VIAL As Ordered ONE
[2022-12-26 10:20] VITALS: TEMP 96.3
[2022-12-26 10:35] VITALS: BP 146/95; O2SAT 96
== END | disposition home or self-care (01) ==
LOC: M OPP 08:15
PROVIDERS: ATTEND Surgery
DX: K64.0 First degree hemorrhoids (principal); K22.89 Other specified disease of esophagus; K29.70 Gastritis, unspecified, without bleeding; I10 Essential (primary) hypertension; R12 Heartburn; F41.9 Anxiety disorder, unspecified; F32.A Depression, unspecified; Z88.5 Allergy status to narcotic agent; Z79.899 Other long term (current) drug therapy
CPT/HCPCS: 43239; 45380; 88305; J3010

== ENCOUNTER → 2023-06-19 | Outpatient (REF) | payer OTHER ==
[~2023-06-19] MED LIST changes: -LIDOCAINE 2% 100MG/5ML SDV (FOR ANES.) As Ordered ONE; -NS 1,000 ML IV ONE; -fentaNYL 100 MCG/2 ML INJECTION As Ordered ONE; -propofoL 500 MG/50 ML VIAL As Ordered ONE
[2023-06-19 22:07] LABS: APPEARANCE, URINE CLEAR (CLEAR); BACTERIA, URINE AUTO NEGATIVE (NEGATIVE); BILIRUBIN, URINE AUTO NEGATIVE (NEGATIVE); BLOOD, URINE BLOOD NEGATIVE (NEGATIVE); COLOR, URINE YELLOW (YELLOW); GLUCOSE, URINE (UA) AUTO NEGATIVE (NEGATIVE); KETONE, URINE AUTO TRACE mg/dL (NEGATIVE); LEUKOCYTE ESTERASE, URINE AUTO NEGATIVE (NEGATIVE); MUCUS, URINE SMALL (NEGATIVE); NITRITE, URINE AUTO NEGATIVE (NEGATIVE); PROTEIN, URINE AUTO NEGATIVE (NEGATIVE); RBC, URINE AUTO 3 /HPF (0-3); SPECIFIC GRAVITY URINE AUTO 1.028 (1.002-1.035); SQUAMOUS EPITHELIAL CELL UR AU 0 /HPF (0-6); UROBILINOGEN, URINE AUTO 0.2 mg/dL (0.0-2.0); WBC, URINE AUTO 1 /HPF (0-3)
[2023-06-19 23:24] LABS: Trichomonas vaginalis (AMP) NOT DETECTED (NEGATIVE)
[2023-06-19 23:48] LABS: GC DNA AMPLIFICATION NEGATIVE (NEGATIVE)
== END ==
LOC: M LAB REF 21:51
PROVIDERS: ATTEND Physician Assistant
DX: N39.0 Urinary tract infection, site not specified (principal)

== ENCOUNTER → 2023-12-22 | Outpatient (REF) | payer OTHER ==
[~2023-12-22] MED LIST changes: +ONDA-282; -ONDA4TAB6
[2023-12-22 18:32] LABS: APPEARANCE, URINE CLEAR (CLEAR); BACTERIA, URINE AUTO NEGATIVE (NEGATIVE); BILIRUBIN, URINE AUTO NEGATIVE (NEGATIVE); BLOOD, URINE BLOOD 1+ (NEGATIVE); COLOR, URINE YELLOW (YELLOW); GLUCOSE, URINE (UA) AUTO NEGATIVE (NEGATIVE); KETONE, URINE AUTO NEGATIVE (NEGATIVE); LEUKOCYTE ESTERASE, URINE AUTO NEGATIVE (NEGATIVE); MUCUS, URINE SMALL (NEGATIVE); NITRITE, URINE AUTO NEGATIVE (NEGATIVE); PROTEIN, URINE AUTO NEGATIVE (NEGATIVE); RBC, URINE AUTO 2 /HPF (0-3); SPECIFIC GRAVITY URINE AUTO 1.023 (1.002-1.035); SQUAMOUS EPITHELIAL CELL UR AU 0 /HPF (0-6); UROBILINOGEN, URINE AUTO 0.2 mg/dL (0.0-2.0); WBC, URINE AUTO 0 /HPF (0-3)
== END ==
LOC: M LAB REF 18:10
PROVIDERS: ATTEND Physician Assistant Medical
DX: N39.0 Urinary tract infection, site not specified (principal)

== ENCOUNTER 2024-09-14 23:02 | Emergency (ER) | payer OTHER ==
[~2024-09-14] VITALS: Ht 172.7 cm; Wt 84.0 kg
[~2024-09-14 23:02] MED LIST changes: -FLOM0.4C39 PO; +TAMS-18 PO
[2024-09-14 23:04] VITALS: BP 131/92; TEMP 97.1; O2SAT 97
== END 2024-09-15 02:30 | disposition left against medical advice (07) ==
LOC: M ED 23:02
DX: Z53.21 Procedure and treatment not carried out due to patient leaving prior to being seen by health care provider (principal)

== ENCOUNTER → 2024-10-20 | Outpatient (REF) | payer OTHER ==
[2024-10-20 13:55] LABS: APPEARANCE, URINE CLEAR (CLEAR); BACTERIA, URINE AUTO NEGATIVE (NEGATIVE); BILIRUBIN, URINE AUTO NEGATIVE (NEGATIVE); BLOOD, URINE BLOOD NEGATIVE (NEGATIVE); GLUCOSE, URINE (UA) AUTO NEGATIVE (NEGATIVE); KETONE, URINE AUTO NEGATIVE (NEGATIVE); LEUKOCYTE ESTERASE, URINE AUTO NEGATIVE (NEGATIVE); MUCUS, URINE SMALL (NEGATIVE); NITRITE, URINE AUTO NEGATIVE (NEGATIVE); PROTEIN, URINE AUTO NEGATIVE (NEGATIVE); RBC, URINE AUTO 1 /HPF (0-3); SPECIFIC GRAVITY URINE AUTO 1.014 (1.002-1.035); SQUAMOUS EPITHELIAL CELL UR AU 0 /HPF (0-6); UROBILINOGEN, URINE AUTO 0.2 mg/dL (0.0-2.0); WBC, URINE AUTO 0 /HPF (0-3)
== END ==
LOC: M LAB REF 12:08
PROVIDERS: ATTEND Physician Assistant Medical
DX: N39.0 Urinary tract infection, site not specified (principal)